=== PATIENT | female | born 1955 | race Caucasian/White ===

== ENCOUNTER → 2023-01-08 | Outpatient (CLI) | payer MEDICARE, BC | LOC: M RAD 10:35 | DX: C90.00 Multiple myeloma not having achieved remission (principal) ==

== ENCOUNTER → 2025-03-07 | Outpatient (REF) | payer MEDICARE, BC | LOC: M LAB REF 17:43 | PROVIDERS: ATTEND Physician Assistant Medical | DX: M79.674 Pain in right toe(s) (principal) ==